=== PATIENT | female | born 1995 | race Caucasian/White ===

== ENCOUNTER 2022-04-08 23:15 | Inpatient (IN) | payer BC ==
[2022-04-09] MEDS ORDERED: Water For Irrigation,Sterile 1,000 ML Container IRR PRN (00:18)
[2022-04-09] MEDS ORDERED: Sodium Chloride 0.9% 2.5 ML Syringe FLUSH PRN (00:18)
[2022-04-09] MEDS ORDERED: Tranexamic Acid 1,000 MG in Sodium Chloride 0.9% 100 ML IV PRN (00:18)
[2022-04-09] MEDS ORDERED: Sodium Chloride 0.9% 20 ML SDV IV PRN (00:18)
[2022-04-09] MEDS ORDERED: Terbutaline 1 MG/ML SDV SUBCUT PRN (00:18)
[2022-04-09] MEDS ORDERED: Carboprost Tromethamine 250 MCG/1 ML Amp IM PRN (00:18)
[2022-04-09] MEDS ORDERED: Methylergonovine 0.2 MG/1 ML Amp IM PRN (00:18)
[2022-04-09] MEDS ORDERED: Sodium Chloride 0.9% 10 ML Syringe FLUSH PRN (00:18)
[2022-04-09] MEDS ORDERED: Butorphanol 1 MG/ML SDV IVPUSH PRN (00:18)
[2022-04-09] MEDS ORDERED: Ondansetron 4 MG/2 ML SDV IVPUSH PRN (00:18)
[2022-04-09] MEDS ORDERED: Acetaminophen 500 MG Tab PO PRN ×2 (00:18→16:12)
[2022-04-09] MEDS ORDERED: Misoprostol 200 MCG Tab PO PRN (00:18)
[2022-04-09] MEDS ORDERED: Lidocaine 1% 50 ML MDV INJECT PRN (00:18)
[2022-04-09] MEDS ORDERED: Lactated Ringers 1,000 ML IV SCH (00:30)
[2022-04-09] MEDS ORDERED: Oxytocin/0.9 % Sodium Chloride 30 UNIT/500 ML BAG IV SCH ×2 (00:30)
[2022-04-09] MEDS ORDERED: Misoprostol 25 MCG (1/4 of 100 MCG) Tab VAG PRN (01:00)
[2022-04-09 01:41] LABS: BLOOD UREA NITROGEN,BUN 7 mg/dL (7.0-18.0); CARBON DIOXIDE,CO2 21.8 mmol/L (21.0-32.0); CHLORIDE,CL 104 mmol/L (98-107); GLUCOSE RANDOM 105 mg/dL (74-106); POTASSIUM,K 3.9 mmol/L (3.5-5.1); SODIUM,NA 136 mmol/L (136-145)
[2022-04-09] MEDS: Misoprostol 25 MCG (1/4 of 100 MCG) Tab VAG PRN ×2 (05:29→09:27)
[2022-04-09] MEDS ORDERED: ePHEDrine 50 MG/ML SDV IVPUSH PRN ×2 (10:08)
[2022-04-09] MEDS ORDERED: Ropivacaine in NACL,ISO-OSM/PF 800 MG in Premix Bag 1 BAG EPIDUR SCH ×2 (10:15)
[2022-04-09] MEDS ORDERED: Ibuprofen 400 MG Tab PO PRN (16:12)
[2022-04-09] MEDS ORDERED: Bisacodyl 10 MG Supp RECTAL PRN (16:12)
[2022-04-09] MEDS ORDERED: Witch Hazel Medicated Pads 40/Jar TOP PRN (16:12)
[2022-04-09] MEDS ORDERED: oxyCODONE 5 MG Tab PO PRN (16:12)
[2022-04-09] MEDS ORDERED: Lanolin 100% Cream 7 GM Tube TOP PRN (16:12)
[2022-04-09] MEDS ORDERED: Benzocaine/Menthol 20%-0.5% Spray 78 GM Cannister TOP PRN (16:12)
[2022-04-09] MEDS ORDERED: Ibuprofen 800 MG Tab PO PRN (16:12)
[2022-04-09] MEDS ORDERED: Docusate Sodium 100 MG Cap PO PRN (16:12)
[2022-04-09] MEDS: Acetaminophen 500 MG Tab PO PRN (19:53)
[2022-04-10 07:38] LABS: BLOOD UREA NITROGEN,BUN 7 mg/dL (7.0-18.0); CARBON DIOXIDE,CO2 19.3 mmol/L (21.0-32.0); CHLORIDE,CL 106 mmol/L (98-107); GLUCOSE RANDOM 90 mg/dL (74-106); POTASSIUM,K 4.1 mmol/L (3.5-5.1); SODIUM,NA 138 mmol/L (136-145)
[2022-04-10] MEDS: Acetaminophen 500 MG Tab PO PRN ×2 (08:28→18:09)
== END 2022-04-10 19:50 | disposition home or self-care (01) | DRG 560 ==
LOC: MW.OBCHECK 23:15 → MW.OB 23:16 → MW.OBCHECK 04-09 00:18 → MW.OB 04-09 00:18 → OBSVTOIN 04-09 15:23 → MW.OB 04-09 19:30
PROVIDERS: ADMIT Obstetrics & Gynecology; ATTEND Obstetrics & Gynecology
PROC: 10E0XZZ Delivery of Products of Conception, External Approach (ICD-10-PCS; principal; 2022-04-09)
PROC: 3E0P7VZ Introduction of Hormone into Female Reproductive, Via Natural or Artificial Opening (ICD-10-PCS; 2022-04-09)
PROC: 3E0R3BZ Introduction of Anesthetic Agent into Spinal Canal, Percutaneous Approach (ICD-10-PCS; 2022-04-09)
PROC: 00HU33Z Insertion of Infusion Device into Spinal Canal, Percutaneous Approach (ICD-10-PCS; 2022-04-09)
DX: O13.4 Gestational [pregnancy-induced] hypertension without significant proteinuria, complicating childbirth (principal); Z37.0 Single live birth; O99.334 Smoking (tobacco) complicating childbirth; F17.210 Nicotine dependence, cigarettes, uncomplicated; Z20.822 Contact with and (suspected) exposure to COVID-19; O99.12 Other diseases of the blood and blood-forming organs and certain disorders involving the immune mechanism complicating childbirth; D69.6 Thrombocytopenia, unspecified; O99.02 Anemia complicating childbirth; D64.9 Anemia, unspecified; Z3A.37 37 weeks gestation of pregnancy
CPT/HCPCS: 36415; 51702; 51703; 59025; 59409; 80053; 82570; 82803; 84156; 85027; 86592; 86850; 86900; 86901; A9270-GY; J0595; J2590; J7120; U0002

== ENCOUNTER 2022-04-14 07:05 | Emergency (ER) | payer BC ==
[2022-04-14] MEDS ORDERED: Ketorolac 30 MG/ML SDV IVPUSH ONE (07:55)
[2022-04-14] MEDS ORDERED: cefTRIAXone 1 GM in Sodium Chloride 0.9% 50 ML IV ONE (08:29)
[2022-04-14] MEDS ORDERED: Sodium Chloride 0.9% 1,000 ML IV ONE (08:32)
[2022-04-14 08:40] LABS: BLOOD UREA NITROGEN,BUN 9 mg/dL (7.0-18.0); CARBON DIOXIDE,CO2 22.1 mmol/L (21.0-32.0); CHLORIDE,CL 107 mmol/L (98-107); GLUCOSE RANDOM 91 mg/dL (74-106); LIPASE 129 U/L (73-393); POTASSIUM,K 4.4 mmol/L (3.5-5.1); SODIUM,NA 137 mmol/L (136-145)
== END 2022-04-14 09:50 | disposition home or self-care (01) ==
LOC: MW.ED 07:05
DX: N12 Tubulo-interstitial nephritis, not specified as acute or chronic (principal); R74.01 Elevation of levels of liver transaminase levels; Z79.899 Other long term (current) drug therapy
CPT/HCPCS: 36415; 80053; 81001; 83690; 85025; 87086; 96361; 96365; 96375; 99283; J0696; J1885; J7030

== ENCOUNTER 2022-05-26 04:09 | Emergency (ER) | payer BC ==
[2022-05-26 05:33] LABS: CARBON DIOXIDE,CO2 28.2 mmol/L (21.0-32.0); POTASSIUM,K 3.8 mmol/L (3.5-5.1)
== END 2022-05-26 07:13 | disposition home or self-care (01) ==
LOC: MW.ED 04:09
DX: R10.11 Right upper quadrant pain (principal)
CPT/HCPCS: 36415; 80053; 81001; 81025; 83690; 85025; 87086; 99283; 99284

== ENCOUNTER 2022-07-13 06:42 | Day surgery (SDC) | payer BC ==
[~2022-07-13 06:42] MED LIST: Albuterol 0.083% 2.5 MG/3 ML Neb Soln NEB PRN; HYDROmorphone 1 MG/ML Syringe IVPUSH PRN; Lactated Ringers 1,000 ML IV SCH; Metoclopramide 10 MG/2 ML SDV IVPUSH PRN; Morphine 4 MG/ML VIAL IVPUSH PRN; Naloxone 0.4 MG/ML SDV IVPUSH PRN; Ondansetron 4 MG/2 ML SDV IVPUSH PRN; Scopolamine 1.5 MG Transdermal Patch ONE; Scopolamine 1.5 MG Transdermal Patch TRDERM ONE; cefOXitin 2 GM in Premix Bag 1 BAG IV ONE; fentaNYL 50 MCG/ML SDV IVPUSH PRN
[2022-07-13] MEDS ORDERED: Ropivacaine 0.5% 5 MG/ML 30 ML SDV ONE (07:13)
[2022-07-13] MEDS ORDERED: Indocyanine Green 25 MG SDV ONE (07:36)
[2022-07-13] MEDS ORDERED: Ondansetron 4 MG/2 ML SDV ONE ×2 (07:37→08:44)
[2022-07-13] MEDS ORDERED: propofoL 100 ML ONE (07:37)
[2022-07-13] MEDS ORDERED: Lidocaine 2% 5 ML SDV ONE (07:37)
[2022-07-13] MEDS ORDERED: Rocuronium Bromide 50 MG/5 ML Syringe ONE ×2 (07:37→08:34)
[2022-07-13] MEDS ORDERED: fentaNYL 100 MCG/2 ML SDV ONE ×2 (07:37→09:09)
[2022-07-13] MEDS ORDERED: ceFAZolin 1 GM Vial ONE ×2 (07:43→07:51)
[2022-07-13] MEDS ORDERED: Bupivacaine 0.5% 30 ML SDV ONE (07:43)
[2022-07-13] MEDS ORDERED: Water For Injection, Sterile 20 ML ONE (07:51)
[2022-07-13] MEDS ORDERED: Dexamethasone 4 MG/ML 5 ML MDV ONE (07:55)
[2022-07-13] MEDS ORDERED: diphenhydrAMINE 50 MG/ML SDV ONE (07:55)
[2022-07-13] MEDS ORDERED: Metoclopramide 10 MG/2 ML SDV ONE (07:55)
[2022-07-13] MEDS ORDERED: Magnesium Sulfate (4.06 MEQ/ML) 5 GM/10 ML SDV ONE (08:19)
[2022-07-13] MEDS ORDERED: Ketorolac 30 MG/ML SDV ONE (08:44)
[2022-07-13] MEDS ORDERED: Sugammadex Sodium 200 MG/2 ML VIAL ONE (08:44)
[2022-07-13] MEDS ORDERED: Acetaminophen/HYDROcodone 325-5 MG Tab PO PRN ×2 (09:19→09:47)
[2022-07-13] MEDS ORDERED: Morphine 4 MG/ML VIAL IVPUSH PRN (09:19)
[2022-07-13] MEDS ORDERED: Lactated Ringers 1,000 ML IV SCH (09:30)
== END 2022-07-13 11:08 | disposition home or self-care (01) ==
LOC: MW.SDS 06:42
PROVIDERS: ATTEND Surgery
DX: K80.10 Calculus of gallbladder with chronic cholecystitis without obstruction (principal); K82.8 Other specified diseases of gallbladder; E66.01 Morbid (severe) obesity due to excess calories; Z79.899 Other long term (current) drug therapy; F17.200 Nicotine dependence, unspecified, uncomplicated; Z68.41 Body mass index [BMI] 40.0-44.9, adult; Z83.79 Family history of other diseases of the digestive system
CPT/HCPCS: 47562; 81025; A9270; J0131; J0690; J1100; J1885; J2405; J2704; J2765; J2795; J3010; J3475; J3490; J7030; J7120; 00790; 64488; J1200